=== PATIENT | male | born 1970 | race Caucasian/White ===

== ENCOUNTER 2019-01-18 08:54 | Emergency (ER) | payer BC ==
[~2019-01-18] VITALS: Ht 177.8 cm; Wt 79.4 kg
--- NOTE | 2019-01-18 10:45 | RAD ---
EXAM: Left ankle, 3 views. HISTORY: Fall. COMPARISON: None. FINDINGS: 3 views left ankle are obtained. There is a mildly displaced fracture the base of the fifth metatarsal. The ankle mortise is intact. No osteochondral lesion is seen. IMPRESSION: Mildly displaced fracture the base of the fifth metatarsal. Electronically signed by: Felicita Alvarenga MD (01/18/2019 10:42 AM) [id number]
--- NOTE | 2019-01-18 10:50 | PHYS DOC ---
Past Medical History Past Medical History: Other Additional Past Medical Histor: Cured Hep. C. Additional Past Surgical Histo: Skull Additional Information: 3 years ago quit. long smoking history. Alcohol Use: Sober Drug Use: None Adult General Chief Complaint Chief Complaint: ANKLE PROBLEM HPI HPI 48-year-old male presents with a left ankle injury. He stepped on a hose and rolled his ankle yesterday. Pain and swelling has increased throughout the day today. He denies any other injury. He does state that it's painful to bear weight.[] Review of Systems Review of Systems Musculoskeletal: Per history of present illness[] All other systems were reviewed and found to be within normal limits, except as documented in this note. Allergies Allergies Allergies Coded Allergies Type Severity Reaction Last Updated Verified thiopental Allergy Mild unknown 01/18/19 Yes Physical Exam Physical Exam Constitutional: Well developed, well nourished, no acute distress, non-toxic appearance. [] HENT: Normocephalic, atraumatic, bilateral external ears normal, oropharynx moist, no oral exudates, nose normal. [] Eyes: PERRLA, EOMI, conjunctiva normal, no discharge. [] Neck: Normal range of motion, no tenderness, supple, no stridor. [] Cardiovascular:Heart rate regular rhythm, no murmur [] Lungs & Thorax: Bilateral breath sounds clear to auscultation [] Abdomen: Bowel sounds normal, soft, no tenderness, no masses, no pulsatile masses. [] Skin: Warm, dry, no erythema, no rash. [] Back: No tenderness, no CVA tenderness. [] Extremities: Significant swelling over the lateral aspect of left foot with some swelling in the left ankle as well moderate ecchymosis. [] Neurologic: Alert and oriented X 3, normal motor function, normal sensory function, no focal deficits noted. [] Psychologic: Affect normal, judgement normal, mood normal. [] Current Patient Data Vital Signs Vital Signs Date Time Temp Pulse Resp B/P (MAP) Pulse Ox O2 Delivery O2 Flow Rate FiO2 01/18/19 10:25 98.1 58 18 126/66 (86) 98 Room Air 98.1 EKG EKG [] Radiology/Procedures Radiology/Procedures []PROCEDURE: ANKLE LEFT 3V EXAM: Left ankle, 3 views. HISTORY: Fall. COMPARISON: None. FINDINGS: 3 views left ankle are obtained. There is a mildly displaced fracture the base of the fifth metatarsal. The ankle mortise is intact. No osteochondral lesion is seen. IMPRESSION: Mildly displaced fracture the base of the fifth metatarsal. Course & Med Decision Making Course & Med Decision Making Pertinent Labs and Imaging studies reviewed. (See chart for details) [] Dragon Disclaimer Dragon Disclaimer This electronic medical record was generated, in whole or in part, using a voice recognition dictation system. Departure Departure Impression: Primary Impression: Nondisplaced fracture of fifth left metatarsal bone Disposition: HOME, SELF-CARE Condition: STABLE Referrals: UNKNOWN PCP NAME (PCP) Patient Instructions: Foot Fracture Additional Instructions: I sure ankle several times daily for at least 15 minutes. Return to the emergency department with any new or concerning symptoms Scripts Hydrocodone/Apap 5-325 (NORCO 5-325 TABLET) 1 Each Tablet 1 TAB PO PRN Q6HRS PRN for PAIN, #15 TAB 0 Refills Prov: OLIVIA ANDERS DO 01/18/19 Problem Qualifiers Primary Impression: Nondisplaced fracture of fifth left metatarsal bone Encounter type: initial encounter Fracture type: closed Qualified Codes: S92.355A - Nondisplaced fracture of fifth metatarsal bone, left foot, initial encounter for closed fracture OLIVIA ANDERS DO Jan 18, 2019 10:50
[2019-01-18] MEDS ORDERED: HYDR-3164 PO (10:51)
[2019-01-18 11:06] VITALS: BP 124/73
== END 2019-01-18 11:06 | disposition home or self-care (01) ==
LOC: ER 08:54
DX: S92.355A Nondisplaced fracture of fifth metatarsal bone, left foot, initial encounter for closed fracture (principal); Z88.8 Allergy status to other drugs, medicaments and biological substances; Z87.891 Personal history of nicotine dependence; X50.1XXA Overexertion from prolonged static or awkward postures, initial encounter; Y93.89 Activity, other specified; Y92.89 Other specified places as the place of occurrence of the external cause; Y99.8 Other external cause status
CPT/HCPCS: 73610; 99283